=== PATIENT | male | born 1955 | race Caucasian/White ===

== ENCOUNTER → 2019-12-14 10:57 | Outpatient (CLI) | payer MEDICARE, BC ==
[~2019-12-14] VITALS: Ht 170.2 cm; Wt 82.7 kg
--- NOTE | ~2019-12-14 | HEMODYNAMI ---
PATIENT:KANE PAVON MEDICAL RECORD: [id number] : 53 LOCATION:DOFE ADMISSION DATE: 12/14/19 Generatedon:12/14/201914:06 Patient name: KANE PAVON Patient #: [id number] SSN: [id number] : 1955 Date of study: 12/14/2019 Page: Of Hemodynamic Procedure Report Patient Data Patient Demographics Procedure consent was obtained First Name: KANE Gender: Male Last Name: SAVANAH : 1955 Patient #: [id number] Age: 64 year(s) Race: SSN: [id number] Additional ID: [id number] Contact details [address]: [address] [place] [address] State: [place] City: [place] Zip code: [address] Past Medical History Allergies Allergen Reaction Date Comments Reported Other allergy 05/03/2019 NITROGYLCERIN Other allergy 12/14/2019 NITROGLYCERIN Admission Admission Data Admission Date: 12/14/2019 Admission Time: 10:57 Arrival Date: 12/14/2019 Arrival Time: 0:00 Height (in.): 66.93 BSA: 1.95 (m2) Height (cm.): 170 BMI: 28.72 (kg/m2) Weight (lbs.): 182.98 Weight (kg.): 83 Lab Results Lab Result Date: 12/14/2019 Lab Result Time: 0:00 Biochemistry Name Units Result Min Max BUN mg/dl 16 --(---*)-- 7 18 Creatinine mg/dl 1.7 --(----)-* 0.6 1.3 eGFR ml/min 43 *-(----)-- 90 120 NONAFRICAN CBC Name Units Result Min Max Hematocrit % 48 --(-*--)-- 42 54 Hemoglobin g/dl 16.5 --(--*-)-- 13.5 17.5 Procedure Procedure Types Cath Procedure Diagnostic Procedure LHC LHC w/Coronaries w/Grafts Sedation Charges Moderate Sedation up to 15 minutes PCI Procedure Coronary Stent Coronary Stent Initial Hemochron ACT Test Procedure Description Procedure Date Procedure Date: 12/14/2019 Procedure Start Time: 13:43 Procedure End Time: 14:02 Procedure Staff Name Function Mitchel Galeana MD Performing Physician Ant Barry RT Monitor Judy Sandoval RT Scrub Loi Henriquez RN Nurse Indication Cardiomyopathy Procedure Data Cath Procedure Fluoroscopy Diagnostic fluoroscopy Total fluoroscopy Time: 4.5 time: 4.5 min min Diagnostic fluoroscopy Total fluoroscopy dose: 617 dose: 617 mGy mGy Contrast Material Contrast Material Type Amount (ml) Isovue 300 98 Entry Location Entry Primary Successful Side Size Upsize Upsize Entry Closure Succes sful Closure Location (Fr) 1 (Fr) 2 (Fr) Remarks Device Remarks Femoral Right 5 Fr 6 Fr Exoseal artery Short Estimated blood loss: 10 ml Diagnostic catheters Device Type Used For End Catheter Placement MULTIPACK JL 4.0 5Fr Procedure catheter MULTIPACK 3DRC 5Fr Procedure catheter MULTIPACK Pigtail 5 Fr Procedure catheter Procedure Complications No complications Procedure Medications Medication Administration Route Dosage Oxygen etCO2 Nasal cannula 2 l/min Heparin Flush Bag added to field 2 bags (1000units/500ml NS) 0.9% NaCl I.V. 100 ml/hr Lidocaine 2% added to field 20 Fentanyl I.V. 50 mcg Fentanyl I.V. 50 mcg Fentanyl I.V. 50 mcg Heparin Bolus I.V. 4000 units Integrilin (Bolus I.V. 7.3 ml 2mg/ml) Integrilin (Bolus wasted 2.7 ml 2mg/ml) Hemodynamics Rest BSA: 1.95 (m2) HGB: 16.5 (g/dl) O2 Consumption: Estimated: 220.03 (ml/min) O2 Co nsumption indexed: Estimated:112.84 (ml/min/m) Heart Rate: 60 (bpm) Pressure Samples Time Site Value (mmHg) Purpose Heart Use Rate(bpm) 13:50 LV 129/17,17 Snapshot 77 Gradients Valve Time Site Site Mean SEP/DFP Peak To Heart Use 1 2 (mmHg) (sec/min) Peak Rate (mmHg) (bpm) Aortic 13:51 LV AO 65 Snapshots Pre Cath Intra NCS Post Cath Vital Signs Time Heart Resp SPO2 etCO2 NIBP (mmHg) Rhythm Pain Sedation Rate (ipm) (%) (mmHg) Status Level (bpm) 13:32:09 60 16 98 0 177/79(148) NSR 0 (11) 10(A) , No pain 13:36:33 64 16 100 24.8 177/100(152) NSR 0 (11) 10(A) , No pain 13:40:53 60 16 99 33 161/89(138) NSR 0 (11) 10(A) , No pain 13:45:11 62 17 97 0 142/93(121) NSR 0 (11) 10(A) , No pain 13:49:25 65 17 97 0 148/88(131) NSR 0 (11) 9(A) , No pain 13:53:41 62 16 98 0 155/89(140) NSR 0 (11) 9(A) , No pain 13:58:03 63 16 97 0 152/85(128) NSR 0 (11) 9(A) , No pain 14:02:17 60 16 97 0.7 150/87(134) NSR 0 (11) 9(A) , No pain 14:05:32 60 10 97 33 153/82(103) NSR 0 (11) 9(A) , No pain Medications Time Medication Route Dose Verified Delivered Reason Notes Effectiveness by by 13:32:46 Oxygen etCO2 2 Mitchel Cortney Per physician Nasal l/min St Balwinder Kwon cannula MD MCDANIEL 13:32:54 Heparin Flush added 2 Mitchel Cortney used for Bag to bags LissettBalwinder Kwon procedure (1000units/500ml field DOE RN NS) 13:33:01 0.9% NaCl I.V. 100 Mitchel Cortney Per physician ml/hr St Balwinder Kwon MD RN 13:33:12 Lidocaine 2% added 20ml Mitchel Cortney used for to vial Lissett Doyle procedure field MD MCDANIEL 13:37:20 Fentanyl I.V. 50 Mitchel Cortney for sedation mcg [facility] Balwinder Kwon MD, RN 13:40:24 Fentanyl I.V. 50 Mitchel Cortney for sedation mcg [facility] Balwinder Kwon MD, RN 13:42:43 Fentanyl I.V. 50 Mitchel Cortney for sedation mcg [facility] Balwinder Kwon MD RN 13:54:10 Heparin Bolus I.V. 4000 Mitchel Cortney for units St Balwinder berrios MD, RN 13:54:24 Integrilin I.V. 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 13:04:20 Patient allergic to Other allergyNITROGLYCERIN 13:16:17 Lab Result : Hematocrit 48 % 13:16:17 Lab Result : eGFR NONAFRICAN 43 ml/min 13:16:17 Lab Result : Hemoglobin 16.5 g/dl 13:16:17 Lab Result : BUN 16 mg/dl 13:16:17 Lab Result : Creatinine 1.7 mg/dl 13:18:32 Lab results completed and on chart. 13:18:42 Stress Test: no; N/A ? 13:18:48 Risk of Mortality: 0.1 13:18:52 Risk of blood transfusion: 0.4 13:18:56 Risk of BRUNILDA: 3.6 13:19:06 Judy SESAY(R) (CV) sent for patient. Start room use. 13:19:08 Time tracking: Regular hours (M-F 7:00 - 5:00) 13:19:16 Plan of Care:Hemodynamics will remain stable., Cardiac rhythm will remain stable., Comfort level will be maintained., Respiratory function will remain adequate., Patient/ family verbilizes understanding of procedure., Procedure tolerated without complication., Recovers from procedure without complications.. 13:26:24 Patient received from Pre/Post Procedure Room to CCL 1 Alert and oriented. Tansferred to table in Supine position. 13:26:26 Warm blankets applied, and paz hugger turned on for patient comfort. 13:26:26 Correct patient and procedure confirmed by team. 13:26:27 ECG and BP/O2 sat monitors applied to patient. 13:26:41 H&P Date Dictated: 12/13/2019 Within 30 days and on chart., H&P Addendum completed by physician on day of procedure. (MUST COMPLETE FOR ALL OUTPATIENTS). 13:28:30 Pre-procedure instructions explained to patient. 13:28:30 Pre-op teaching completed and patient verbalized understanding. 13:28:32 Family in waiting room. 13:28:34 Patient NPO since Breakfast. 13:28:36 Is the patient allergic to Iodine/contrast media? No. 13:28:40 Is patient on blood thinner?No 13:28:45 Patient diabetic? No. 13:28:48 Previous problem with sedation/anesthesia? No ? 13:28:50 Snore? No 13:28:57 Sleep apnea? Yes 13:28:57 Deviated septum? No 13:28:58 Opens mouth fully? Yes 13:28:59 Sticks out tongue? Yes 13:29:00 Airway obstruction? No ? 13:29:13 Dentures? No ? 13:30:19 Pre procedure: right dorsailis pedis pulse 2+ Normal; easily identifiable; not easily obliterated 13:30:20 Patient pain scale 0/10 ?. 13:30:27 IV patent on arrival in left forearm with 0.9% NaCl at [facility]. 13:30:33 Right groin area was prepped with chlora-prep and draped in sterile fashion 13:30:34 Alarms reviewed by R. N. 13:30:34 Sharps counted by scrub and verified by R.N. 13:30:36 Use device set Femoral Dx 13:30:37 ACIST Syringe (38396) opened to sterile field. 13:30:37 Bag Decanter (2002S) opened to sterile field. 13:30:38 Medline Cath Pack ([id number]) opened to sterile field. 13:30:39 ACIST Hand Control (24072) opened to sterile field. 13:30:39 ACIST Manifold (09673) opened to sterile field. 13:30:40 DIAGNOSTIC Multipack 5Fr catheter set ([id number]) opened to sterile field. 13:30:40 Tegaderm 4 x 4 (1626W) opened to sterile field. 13:30:42 EMERALD Guide Wire (271-724) opened to sterile field. 13:30:42 SHEATH 5FR Clayhole (YHN777) opened to sterile field. 13:30:48 Vital chart was started 13:30:53 Baseline sample Acquired. 13:30:57 Rhythm: sinus rhythm , paced 13:30:59 Full Disclosure recording started 13:31:49 Baseline sample Acquired. 13:32:46 Oxygen 2 l/min etCO2 Nasal cannula was administered by Cortney Kwon RN; Per physician; Verbal order read back and verified. 13:32:54 Heparin Flush Bag (1000units/500ml NS) 2 bags added to field was administered by Cortney Kwon RN; used for procedure; Verbal order read back and verified. 13:33:01 0.9% NaCl 100 ml/hr I.V. was administered by Cortney Kwon RN; Per physician; Verbal order read back and verified. 13:33:12 Lidocaine 2% 20ml vial added to field was administered by Cortney Kwon RN; used for procedure; Verbal order read back and verified. 13:33:46 Physician arrived 13:33:46 --------ALL STOP TIME OUT------ 13:33:46 Final Timeout: patient, procedure, and site verified with staff and physician. All members of the team are in agreement. 13:33:48 Right groin site verified by team. 13:33:51 Fire Safety Assessment: A--An alcohol-based skin anteseptic being used preoperatively., C--Open oxygen or nitrous oxide is being used., D--An ESU, laser, or fiber-optic light is being used. 13:33:55 Physical assessment completed. ASA score P 2 - A patient with mild systemic disease as per Mitchel Galeana MD. 13:34:12 3b) 30-44 Moderately reduced kidney function. 13:34:32 Maximum allowable contrast dose (3.7 X eGFR X 0.75)119 ml. 13:34:42 Sedation plan: IV Moderate Sedation Medication:Versed, Fentanyl 13:37:20 Fentanyl 50 mcg I.V. was administered by Cortney Kwon RN; for sedation; Verbal order read back and verified. 13:40:24 Fentanyl 50 mcg I.V. was administered by Cortney Kwon RN; for sedation; Verbal order read back and verified. 13:41:51 Zero performed for pressure channel P1 13:42:43 Fentanyl 50 mcg I.V. was administered by Cortney Kwon RN; for sedation; Verbal order read back and verified. 13:42:55 Zero performed for pressure channel P1 13:43:03 Procedure started. 13:43:06 Local anesthetic to right femoral artery with Lidocaine 2% by Mitchel Galeana MD.INITIAL ACCESS ONLY 13:43:41 A 5 Fr sheath was inserted into the Right Femoral artery 13:44:35 A MULTIPACK JL 4.0 5Fr catheter was advanced over the wire and used for Procedure. 13:45:16 LCA angiography performed. 13:46:15 SHEATH 6FR Clayhole (YBW833) opened to sterile field. 13:46:27 INFLATOR Merit BasixCompak (FB4360) opened to sterile field. 13:46:27 WHISPER 300cm guide wire ([id number]) opened to sterile field. 13:46:31 Catheter exchanged over wire. 13:46:36 A MULTIPACK 3DRC 5Fr catheter was advanced over the wire and used for Procedure. 13:47:15 RCA angiography performed. 13:47:37 TOVAR to LAD angiography performed. 13:49:36 Catheter exchanged over wire. 13:49:55 A MULTIPACK Pigtail 5 Fr catheter was advanced over the wire and used for Procedure. 13:50:44 GUIDE 6FR XBLAD 3.5 catheter ([id number]) opened to sterile field. 13:51:06 LV gram done using GARCIA 13:51:08 Injector settings: Ml/sec: 10, Volume: 20, 13:51:10 LV hemodynamics recorded. 13:51:20 EF : 30 % 13:51:25 Catheter removed. 13:51:33 Sheath upsized to a 6 Fr Short. 13:51:44 Pre PCI Site: [place] Ramus has 80% stenosis. 13:51:52 6 Fr XBLAD 3.5 guide catheter was inserted over the wire 13:52:05 WHISPER wire advanced. 13:54:04 Wire advanced across lesion. 13:54:10 Heparin Bolus 4000 units I.V. was administered by Cortney Kwon RN; for anticoagulation; Verbal order read back and verified. 13:54:24 Integrilin (Bolus 2mg/ml) 7.3 ml I.V. was administered by Cortney Kwon RN; for anticoagulation; Verbal order read back and verified. 13:54:33 Integrilin (Bolus 2mg/ml) 2.7 ml wasted was administered by Cortney Kwon RN; for anticoagulation; Verbal order read back and verified. 13:58:10 Place stent Inflation Number: 1 A LILI OTW 2.5 x 08 stent ([id number]) was prepped and advanced across the Ramus 80. The stent was deployed at 16 MARIANNE for 0:30 (min:sec) 0. 13:59:03 Stent catheter was removed intact over wire. 13:59:04 Wire removed. 13:59:05 Guide catheter removed. 13:59:10 Post PCI Site: [place] Ramus has 0% stenosis. 13:59:27 EXOSEAL 6Fr (EX600) opened to sterile field. 13:59:37 Sheath removed intact; hemostasis achieved with Exoseal to the Right Femoral artery. 13:59:38 Procedure ended.(Physican Out) 14:00:24 Fluoroscopy time 04.50 minutes. 14:00:28 Flurop Dose total: 617 14:00:28 Fluoroscopy dose: 617 mGy 14:00:33 Dose Area Product 60411 mGy/cm. 14:00:38 Contrast amount:Isovue 300 98ml. 14:00:41 Maximum allowable dose exceeded? No. 14:00:42 Sharps counted by scrub and verified by R.N. 14:00:43 Insertion/operative site no bleeding no hematoma. 14:00:46 Post-op/insertion site Right Femoral artery dressed using a 4 x 4 and Tegaderm. 14:00:48 Post right femoral artery:stable, soft, clean and dry 14:00:50 Post Procedure Pulses reassessed and unchanged 14:00:52 Post-procedure physical assessment completed. ASA score P 2 - A patient with mild systemic disease as per Mitchel Galeana MD. 14:00:54 Post procedure rhythm: unchanged. 14:00:58 Estimated blood loss: 10 ml 14:01:00 Post procedure instruction explained to patient.Patient verbalizes understanding. 14:01:00 Patient needs reinforcement of post procedure teaching. 14:01:50 Procedure type changed to Cath procedure, Diagnostic procedure, LHC, LHC w/Coronaries w/Grafts, Sedation Charges, Moderate Sedation up to 15 minutes, PCI procedure, Coronary Stent, Coronary Stent Initial, Hemochron ACT Test 14:02:27 Procedure and supply charges have been captured, reviewed, submitted and are correct. 14:02:30 Procedure Complication : No complications 14:02:33 Vital chart was stopped 14:02:37 [facility] Findings: MVD- PCI performed (see procedure note) 14:02:43 Operative report dictated upon procedure completion. 14:02:47 Report given to Pre/Post Procedure Room. 14:02:50 Patient transfered to Pre/Post Procedure Room with Stretcher. 14:02:56 Procedure ended. 14:02:56 Full Disclosure recording stopped 14:03:48 ACT drawn and resulted at 297 seconds. (normal therapeutic range 180-240 seconds). 14:03:58 ACC-PCI Only Patient was given prescriptions, or instructed by Mitchel Galeana MD to start/continue the following medications upon discharge: Aspirin, Plavix 14:03:59 End room use (Document Last) 14:04:23 Vital chart was started 14:04:57 End room use (Document Last) 14:06:07 Vital chart was stopped Intervention Summary Intervention Notes Time ActionType Lesion and Equipment Action# Pressure Duration Attributes Used 13:58:10 Place stent [place] LILI OTW 2.5 1 16 00:30 x 08 stent ([id number]) Device Usage Item Name Manufacture Quantity Catalog Hospital Part Current Minim al Lot# / Number Charge Number Stock Stock Serial# Code ACIST Syringe Acist 1 99741 749212 046467 264633 20 (10781) Medical Systems Inc Bag Decanter Microtek 1 2001S 796990 14082 721737 5 (2001S) Medical Inc. Medline Cath Medline 1 [id number] 215274 84522 154018 5 Pack ([id number]) ACIST Hand Acist 1 07151 675270 711291 624157 5 Control Medical (30800) Systems Inc ACIST Acist 1 55598 647553 242551 555646 5 Manifold Medical (26938) Systems Inc DIAGNOSTIC Cardinal 1 KX1959 255497 59400 658527 30 Multipack 5Fr Health catheter set (BB1029) Tegaderm 4 x 3M 1 1626W 871127 981700 819846 5 4 (1626W) EMERALD Guide Cardinal 1 502-455 293286 543938 686023 5 Wire Health (502-455) SHEATH 5FR Terumo 1 HDE864 769433 914886 049694 5 Clayhole (MDL868) MULTIPACK JL Cardinal 1 294765 5 4.0 5Fr Health catheter SHEATH 6FR Terumo 1 ZTF836 990984 607681 975329 40 [place]hole (ZQA577) INFLATOR Merit 1 UG4031 158696 315851 042005 15 [facility] Medical BasixCompak (SE8287) WHISPER 300cm Harmon 1 [id number] 363096 639054 015514 5 guide wire Vascular ([id number]) MULTIPACK Cardinal 1 074876 5 3DRC 5Fr Health catheter MULTIPACK Cardinal 1 721186 5 Pigtail 5 Fr Health catheter GUIDE 6FR Cardinal 1 [id number] 041918 336801 751390 10 XBLAD 3.5 Health catheter ([id number]) LILI OTW 2.5 Medtronic 1 [id number] 967196 70573 119732 5 [id number] x 08 stent ([id number]) EXOSEAL 6Fr Cardinal 1 EX600 320811 496740 799565 10 (EX600) Health Signature Audit [place] Stage Time Signature Unsigned Intra-Procedure 12/14/2019 Ant Barry 2:06:04 PM RT(R); Loi Henriquez RN; Mitchel Galeana MD [facility] [address] [place] [address]
[~2019-12-14 10:57] MED LIST: AMIODARONE HCL200 MG PO; FUROSEMIDE20 MG PO; ISOSORBIDE MONO20 MG PO; LASIX40 MG PO; OMEPRAZOLE40 MG PO; PLAVIX75 MG PO; TOUJEO SOL300 UNIT/1 SC
[2019-12-14 12:26] VITALS: BP 145/80; Ht 170.2 cm; Wt 82.7 kg
[2019-12-14 12:28] LABS: BASOPHILS 0.9 % (0-2); EOSINOPHILS 3.4 % (0-7); HEMOGLOBIN 16.5 g/dL (13.5-17.5); IMMATURE GRANULOCYTES 0.2 % (0-5); LYMPHOCYTES 37.6 % (15-50); MCH 32.1 pg (26.0-34.0); MCHC 34.4 g/dL (31.0-37.0); MCV 93.4 fL (80.0-100.0); MEAN PLATELET VOLUME 11.8 fL (7.4-10.4); MONOCYTES 7.5 % (2-11); NEUTROPHILS 50.4 % (40-80); PLATELET COUNT 109 10x3/uL (130-400); RBC 5.14 10x6/uL (4.20-6.10); RDW 13.5 % (11.5-14.5); WBC 4.7 10x3/uL (4.8-10.8)
[2019-12-14 12:50] LABS: ANION GAP 15.7 mmol/L (8-16); CALCIUM 8.7 mg/dL (8.5-10.1); CARBON DIOXIDE 22.3 mmol/L (21.0-32.0); CHOL - HDL RATIO 9.5 ratio (2.3-4.9); CREATININE - SERUM 1.7 mg/dL (0.6-1.3); LDL-HDL RATIO 6.4 ratio (1.5-3.5)
--- NOTE | 2019-12-14 14:18 | NUR ---
REC'D TO ROOM 7 VIA STRETCHER FROM [employer]. MONITORS ESTAB. AT BS. SEE ORTHOTIC/PROSTHETIC PRACTITIONER. ALARMS ON AND C/L IN REACH.
--- NOTE | 2019-12-14 14:30 | NUR ---
R GROIN SITE SOFT, C/D/I, NO S/S BLEEDING OR HEMATOMA. B/P 143/75, HR 60. R LEG/FOOT WARM WITH PALP PULSES. AT BS. PT DENIES PAIN OR NEEDS. ALARMS ON AND C/L IN REACH.
--- NOTE | 2019-12-14 15:00 | NUR ---
RIGHT GROIN DRESSING C/D/I. NO S/S OF HEMATOMA NOTED. CALL LIGHT WITHIN REACH. VSS AT THIS TIME.
--- NOTE | 2019-12-14 15:30 | NUR ---
RIGHT GROIN DRESSING C/D/I. NO S/S OF HEMATOMA NOTED. CALL LIGHT WITHIN REACH. VSS AT THIS TIME.
--- NOTE | 2019-12-14 16:00 | NUR ---
RIGHT GROIN DRESSING C/D/I. NO S/S OF HEMATOMA NOTED. CALL LIGHT WITHIN REACH. VSS. CALL LIGHT WITHIN REACH. PT RESTING COMFORTABLY. FAMILY AT BEDSIDE. TOLERATING SIPS OF WATER. DENIES NAUSEA/PAIN AT THIS TIME.
--- NOTE | 2019-12-14 17:00 | NUR ---
RIGHT GROIN DRESSING C/D/I. NO S/S OF HEMATOMA NOTED. CALL LIGHT WITHIN REACH. FAMILY AT BEDSIDE. HEAD OF BED INC TO 30 DEGREES. TOLERATED WELL. SET UP WITH SANDWICH TRAY AND DRINK AT THIS TIME. DENIES NAUSEA.
--- NOTE | 2019-12-14 17:30 | NUR ---
DISCUSSED DISCHARGE INSTRUCTIONS WITH PT AND PT'S . THEY VOICED UNDERSTANDING. PIV D/C'D WITH CATH TIP INTACT. TOLERATED WELL. RIGHT GROIN DRESSING C/D/I. NO S/S OF HEMATOMA NOTED. PT INSTRUCTED TO GET UP AND DRESSED AT THIS TIME. AT BEDSIDE TO ASSIST.
--- NOTE | 2019-12-14 17:37 | NUR ---
PT VOIDED 300cc OF CLEAR YELLOW URINE IN URINAL WITHOUT DIFFICULTY.
--- NOTE | 2019-12-18 10:00 | OP ---
PATIENT NAME: KANE PAVON MEDICAL RECORD: [id number] :53 LOCATION:D.CAT ADMISSION DATE: SURGEON: STEVE SANCHEZ MD DATE OF OPERATION: 12/14/2019 PROCEDURE: Left heart catheterization, selective coronary angiography, right femoral artery approach. CATHETERS: A 5-Nepali sheath, 5/4 left and right Vero, 5/4 pig. The procedure was well tolerated. The patient returned to the linton, sheath removed. ExoSeal device placed. FINDINGS: Left ventriculography in 30-degree GARCIA view shows marked inferior hypokinesis to akinesis, overall function reduced 30-35%. CORONARY ANATOMY: LEFT MAIN: Left main is free of disease. LAD: Fills for a short period of time, then totally occluded, fills via competitive flow. CIRCUMFLEX: There is a high OM/ramus with previously placed stents. The stents themselves do not interlock and with about 80% restenosis, small catawba circumflex. The right coronary artery is totally occluded and fills via the LAD via the TOVAR. TOVAR to LAD: Widely patent throughout its course without evidence of post-anastomotic stenosis. PLAN: Intervention of the ramus/high obtuse marginal. DESCRIPTION OF PROCEDURE: A 5-Nepali sheath was exchanged for a 6-Nepali sheath. A XB LAD guiding catheter provided excellent guide catheter support followed by 300 cm Whisper wire was placed across the 80% stenosis down the distal portion of the vessel, used a short 2.5 x 8 mm Herbert drug-eluting stent up to 16 atmospheres for 45 seconds in between the 2 stents. This showed excellent apposition, good improved flow distally, excellent resolution of 80% stenosis, no significant residual. The patient was previously on Plavix. Heparin was used during the case. Sheath was closed with ExoSeal device. TRANSINT:[id number] Voice Confirmation ID: [id number] DOCUMENT ID: [id number] STEVE SANCHEZ MD at 1000 CC: [id number] DICTATION DATE: 12/14/19 1414 MANAGER LOCATION: 12/14/19 1619 DEP CLI 12/14/19 [place] [address]
== END | disposition home or self-care (01) ==
LOC: D.CATH 10:57
PROVIDERS: ATTEND Internal Medicine Interventional Cardiology
DX: I42.9 Cardiomyopathy, unspecified (principal); E78.5 Hyperlipidemia, unspecified; Z95.810 Presence of automatic (implantable) cardiac defibrillator; I25.110 Atherosclerotic heart disease of native coronary artery with unstable angina pectoris
CPT/HCPCS: 93459; C9600

== ENCOUNTER 2019-12-25 13:26 | Inpatient (IN) | payer MEDICARE, BC ==
[~2019-12-25] VITALS: Ht 152.4 cm; Wt 80.9 kg
--- NOTE | ~2019-12-25 | HEMODYNAMI ---
PATIENT:KANE PAVON MEDICAL RECORD: [id number] : 53 LOCATION:[facility] D.2117 ADMISSION DATE: 12/26/19 Generatedon:12/26/201916:10 Patient name: KANE PAVON Patient #: [id number] SSN: [id number] : 1955 Date of study: 12/26/2019 Page: Of Hemodynamic Procedure Report Patient Data Patient Demographics Procedure consent was obtained First Name: KANE Gender: Male Last Name: SAVANAH : 1955 Patient #: [id number] Age: 64 year(s) Race: SSN: [id number] Additional ID: [id number] Contact details [address]: [address] [place] [address] State: [place] City: [place] Zip code: [address] Past Medical History Allergies Allergen Reaction Date Comments Reported Other allergy 05/03/2019 NITROGYLCERIN Other allergy 12/14/2019 NITROGLYCERIN Other allergy 12/26/2019 nitro Admission Admission Data Admission Date: 12/26/2019 Admission Time: 13:10 Arrival Date: 12/26/2019 Arrival Time: 0:00 Room #: D.2117 Insurance Payor: Medicare [facility] #: [id number] Height (in.): 59.84 BSA: 1.78 (m2) Height (cm.): 152 BMI: 35.49 (kg/m2) Weight (lbs.): 180.78 Weight (kg.): 82 Lab Results Lab Result Date: 12/26/2019 Lab Result Time: 0:00 Biochemistry Name Units Result Min Max BUN mg/dl 20 --(----)*- 7 18 Creatinine mg/dl 1.8 --(----)-* 0.6 1.3 eGFR ml/min 40 *-(----)-- 90 120 NONAFRICAN Troponin l ng/ml 0.244 --(----)-* 0 0.06 CBC Name Units Result Min Max Hematocrit % 44.5 --(*---)-- 42 54 Hemoglobin g/dl 14.9 --(-*--)-- 13.5 17.5 Procedure Procedure Types Cath Procedure Diagnostic Procedure [facility] w/Coronaries w/Grafts Sedation Charges Moderate Sedation up to 15 minutes Procedure Description Procedure Date Procedure Date: 12/26/2019 Procedure Start Time: 15:52 Procedure End Time: 16:02 Procedure Staff Name Function Mitchel Galeana MD Performing Physician Justina Marrero RT Monitor Cortney Kwon RN Nurse Judy Sandoval RT Scrub Procedure Data Cath Procedure Fluoroscopy Diagnostic fluoroscopy Total fluoroscopy Time: 2.3 time: 2.3 min min Diagnostic fluoroscopy Total fluoroscopy dose: 266 dose: 266 mGy mGy Contrast Material Contrast Material Type Amount (ml) Isovue 300 52 Entry Location Entry Primary Successful Side Size Upsize Upsize Entry Closure Succes sful Closure Location (Fr) 1 (Fr) 2 (Fr) Remarks Device Remarks Femoral Right 5 Fr Exoseal artery Estimated blood loss: 10 ml Diagnostic catheters Device Type Used For End Catheter Placement MULTIPACK JL 4.0 5Fr Procedure catheter MULTIPACK 3DRC 5Fr Procedure catheter MULTIPACK Pigtail 5 Fr Ventriculography catheter Procedure Complications No complications Procedure Medications Medication Administration Route Dosage 0.9% NaCl I.V. 100 ml/hr Oxygen etCO2 Nasal cannula 2 l/min Lidocaine 2% added to field 20 Heparin Flush Bag added to field 2 bags (1000units/500ml NS) Versed I.V. 2 mg Fentanyl I.V. 50 mcg Versed I.V. 2 mg Fentanyl I.V. 50 mcg Hemodynamics Rest BSA: 1.78 (m2) HGB: 14.9 (g/dl) O2 Consumption: Estimated: 200.83 (ml/min) O2 Co nsumption indexed: Estimated:112.83 (ml/min/m) Heart Rate: 60 (bpm) Pressure Samples Time Site Value (mmHg) Purpose Heart Use Rate(bpm) 15:58 LV 153/10,16 Snapshot 63 15:59 AO 146/81(109) Pullback 60 15:59 LV 139/18,20 Pullback 60 Gradients Valve Time Site 1 Site 2 Mean SEP/DFP Peak To Heart Use (mmHg) (sec/min) Peak Rate (mmHg) (bpm) Aortic 15:59 LV AO 0 60 139/18,20 146/81(109) Calculations Valve P-P Mean Valve Index Valve Source Name Gradient Area Flow (cm2) Aortic 0 0 Snapshots Pre Cath Intra NCS Post Cath Vital Signs Time Heart Resp SPO2 etCO2 NIBP (mmHg) Rhythm Pain Sedation Rate (ipm) (%) (mmHg) Status Level (bpm) 14:37:54 60 13 98 30.5 149/82(134) Paced 0 (11) 10(A) , No pain 14:42:24 65 10 97 36.5 124/73(101) Paced 0 (11) 10(A) , No pain 14:46:49 60 11 97 0 143/77(115) Paced 0 (11) 10(A) , No pain 14:51:15 60 11 98 37.2 139/76(107) Paced 0 (11) 10(A) , No pain 14:55:43 60 11 98 0 135/77(113) Paced 0 (11) 10(A) , No pain 15:00:10 60 10 98 0 138/68(104) Paced 0 (11) 10(A) , No pain 15:04:36 60 11 97 0 139/74(106) Paced 0 (11) 10(A) , No pain 15:08:54 60 12 97 0 137/78(123) Paced 0 (11) 10(A) , No pain 15:13:20 59 15 98 29.8 142/82(131) Paced 0 (11) 10(A) , No pain 15:17:43 60 9 98 0 132/75(110) Paced 0 (11) 10(A) , No pain 15:22:07 60 10 97 0 141/76(113) Paced 0 (11) 10(A) , No pain 15:26:27 60 9 98 0 136/76(109) Paced 0 (11) 10(A) , No pain 15:30:47 60 10 98 0 136/75(111) Paced 0 (11) 10(A) , No pain 15:35:09 60 10 98 0 141/79(114) Paced 0 (11) 10(A) , No pain 15:39:31 60 10 97 19.3 139/75(106) Paced 0 (11) 10(A) , No pain 15:43:51 60 10 98 0 136/77(108) Paced 0 (11) 10(A) , No pain 15:48:13 60 10 97 0 142/78(106) Paced 0 (11) 10(A) , No pain 15:52:38 63 18 98 28.3 143/87(126) Paced 0 (11) 10(A) , No pain 15:57:04 60 15 97 34.2 156/83(126) Paced 0 (11) 10(A) , No pain 16:01:34 60 12 96 33.5 165/88(138) Paced 0 (11) 10(A) , No pain Medications Time Medication Route Dose Verified Delivered Reason Notes Eff ectiveness by by 14:36:34 0.9% NaCl I.V. 100 Mitchel Cortney used for ml/hr Lissett Doyle procedure MD MCDANIEL 14:36:42 Oxygen etCO2 2 Mitchel Cortney used for Nasal l/min [facility] procedure cannula MD MCDANIEL 14:36:47 Lidocaine 2% added 20ml Mitchel Grullon for local to vial [facility] anesthetic field MD DOE 14:36:50 Heparin Flush added 2 Mitchel Mitchel used for Bag to bags [facility] procedure (1000units/500ml field MD DOE NS) 15:49:29 Versed I.V. 2 mg Mitchel Cortney for LissettBalwinder Kwon sedation MD MCDANIEL 15:49:43 Fentanyl I.V. 50 Mit[address] Hob[address]yla for mcg [address] Balwinder Kwon sedation MD MCDANIEL 15:54:14 Versed I.V. 2 mg Mitchel Hobsonyla for LissettBalwinder Kwon sedation MD MCDANIEL 15:54:32 Fentanyl I.V. 50 Mitchel Hobsonyla for mcg LissettBalwinder Kwon sedation MD MCDANIELphoto optics technician Log Time Note 14:20:06 Cortney Kwon RN sent for patient. Start room use. 14:24:49 Informed consent obtained and on chart 14:26:38 Lab Result : BUN 20 mg/dl 14:26:38 Lab Result : Troponin l 0.244 ng/ml 14:26:38 Lab Result : Creatinine 1.8 mg/dl 14:26:38 Lab Result : Hemoglobin 14.9 g/dl 14:26:38 Lab Result : eGFR NONAFRICAN 40 ml/min 14:26:38 Lab Result : Hematocrit 44.5 % 14:26:44 Arrival Date: 12/26/2019 12:00:00 AM 14:26:48 Patient Height : 59.84 inches 14::54 Patient Weight : 180.78 lbs 14:28:48 Time tracking: Regular hours (M-F 7:00 - 5:00) 14:28:56 Plan of Care:Hemodynamics will remain stable., Cardiac rhythm will remain stable., Comfort level will be maintained., Respiratory function will remain adequate., Patient/ family verbilizes understanding of procedure., Procedure tolerated without complication., Recovers from procedure without complications.. 14:29:02 Procedure Status Urgent Heart Cath (IP). 14:29:28 Patient received from Med II to CCL 1 Alert and oriented. Tansferred to table in Supine position. 14:29:29 Warm blankets applied, and paz hugger turned on for patient comfort. 14:29:30 Correct patient and procedure confirmed by team. 14:29:34 ECG and BP/O2 sat monitors applied to patient. 14:36:26 Vital chart was started 14:36:34 0.9% NaCl 100 ml/hr I.V. was administered by Cortney Kwon RN; used for procedure; Verbal order read back and verified. 14:36:42 Oxygen 2 l/min etCO2 Nasal cannula was administered by Cortney Kwon RN; used for procedure; Verbal order read back and verified. 14:36:47 Lidocaine 2% 20ml vial added to field was administered by Mitchel Galeana MD; for local anesthetic; Verbal order read back and verified. 14:36:50 Heparin Flush Bag (1000units/500ml NS) 2 bags added to field was administered by Mitchel Galeana MD; used for procedure; Verbal order read back and verified. 14:38:22 Baseline sample Acquired. 14:38:29 Full Disclosure recording started 14:38:37 H&P Date Dictated: 12/25/2019 Within 30 days and on chart.. 14:38:39 Pre-procedure instructions explained to patient. 14:38:41 Family in patients room. 14:38:44 Patient NPO since Midnight. 14:38:57 Patient allergic to Other allergynitro 14:39:00 Is the patient allergic to Iodine/contrast media? No. 14:39:03 Was the patient premedicated? Yes 14:39:06 Is patient on blood thinner?Yes 14:39:10 ACC The patient was administered the following blood thiners within the last 24 hours: ACCPlavix 14:39:13 Patient diabetic? Yes. 14:39:15 If diabetic: On Metformin? No 14:39:21 Snore? Yes 14:39:24 Sleep apnea? Yes 14:39:33 Dentures? No ? 14:39:38 Patient pain scale 0/10 ?. 14:39:46 IV patent on arrival in right antecubital with 0.[facility]% [facility] at [facility]. 14:39:50 Lab results completed and on chart. 14:39:54 Right groin area was prepped with chlora-prep and draped in sterile fashion 14:39:55 Alarms reviewed by R. N. 14:39:55 Sharps counted by scrub and verified by R.N. 14:39:58 Physician paged 14:42:00 Use device set Femoral Dx 14:42:01 ACIST Syringe (31837) opened to sterile field. 14:42:02 Bag Decanter (2002S) opened to sterile field. 14:42:02 Medline Cath Pack ([id number]) opened to sterile field. 14:42:03 ACIST Hand Control (31320) opened to sterile field. 14:42:04 ACIST Manifold (77444) opened to sterile field. 14:42:04 DIAGNOSTIC Multipack 5Fr catheter set (MP7735) opened to sterile field. 14:42:05 Tegaderm 4 x 4 (1626W) opened to sterile field. 14:42:08 SHEATH 5FR [place] ([id number]) opened to sterile field. 14:42:09 EMERALD Guide Wire (420-324) opened to sterile field. 14:43:05 Insurance Payor : Medicare 14:56:21 Zero performed for pressure channel P1 15:48:41 Physician arrived 15:48:42 --------ALL STOP TIME OUT------ 15:48:43 Final Timeout: patient, procedure, and site verified with staff and physician. All members of the team are in agreement. 15:48:45 Right groin site verified by team. 15:48:51 Fire Safety Assessment: A--An alcohol-based skin anteseptic being used preoperatively., C--Open oxygen or nitrous oxide is being used., D--An ESU, laser, or fiber-optic light is being used. 15:48:55 Physical assessment completed. ASA score P 2 - A patient with mild systemic disease as per Mitchel Galeana MD. 15:49:12 2) 60-89 Mildly reduced kidney function, and other findings (as for stage 1) point to kidney disease. 15:49:29 Versed 2 mg I.V. was administered by Cortney Kwon RN; for sedation; Verbal order read back and verified. 15:49:43 Fentanyl 50 mcg I.V. was administered by Cortney Kwon RN; for sedation; Verbal order read back and verified. 15:51:14 Maximum allowable contrast dose (3.7 X eGFR X 0.75)111 ml. 15:52:10 Sedation plan: IV Moderate Sedation Medication:Versed, Fentanyl 15:52:18 Procedure started. 15:52:42 Local anesthetic to right femoral artery with Lidocaine 2% by Mitchel Galeana MD.INITIAL ACCESS ONLY 15:52:52 A 5 Fr sheath was inserted into the Right Femoral artery 15:53:46 A MULTIPACK JL 4.0 5Fr catheter was advanced over the wire and used for Procedure. 15:53:48 LCA angiography performed. 15:54:14 Versed 2 mg I.V. was administered by Cortney Kwon RN; for sedation; Verbal order read back and verified. 15:54:31 Catheter removed. 15:54:32 Fentanyl 50 mcg I.V. was administered by Cortney Kwon RN; for sedation; Verbal order read back and verified. 15:54:41 A MULTIPACK 3DRC 5Fr catheter was advanced over the wire and used for Procedure. 15:54:43 RCA angiography performed. 15:57:25 TOVAR to LAD angiography performed. 15:57:30 Catheter removed. 15:57:38 A MULTIPACK Pigtail 5 Fr catheter was advanced over the wire and used for Ventriculography. 15:57:45 LV gram done using GARCIA 15:58:55 EF : 50 % 15:59:36 Catheter removed. 15:59:46 Sheath removed intact; hemostasis achieved with Exoseal to the Right Femoral artery. 15:59:50 EXOSEAL 5Fr (EX500) opened to sterile field. 15:59:53 Procedure ended.(Physican Out) 16:00:16 Fluoroscopy time 02.30 minutes. 16:00:22 Flurop Dose total: 266 16:00:22 Fluoroscopy dose: 266 mGy 16:00:29 Dose Area Product 77246 mGy/cm. 16:00:36 Contrast amount:Isovue 300 52ml. 16:00:38 Maximum allowable dose exceeded? No. 16:00:40 Sharps counted by scrub and verified by R.N. 16:00:41 Insertion/operative site no bleeding no hematoma. 16:00:44 Post-op/insertion site Right Femoral artery dressed using a 4 x 4 and Tegaderm. 16:01:17 Post right femoral artery:stable 16:01:23 Post-procedure physical assessment completed. ASA score P 3 - A patient with severe systemic disease as per Mitchel Galeana MD. 16:01:28 Post procedure rhythm: unchanged. 16:01:31 Estimated blood loss: 10 ml 16:01:33 Post procedure instruction explained to patient.Patient verbalizes understanding. 16:01:43 Procedure type changed to Cath procedure, Diagnostic procedure, LHC, LHC w/Coronaries w/Grafts, Sedation Charges, Moderate Sedation up to 15 minutes 16:01:48 Procedure and supply charges have been captured, reviewed, submitted and are correct. 16:02:11 Procedure Complication : No complications 16:02:13 Vital chart was stopped 16:02:21 [facility] Findings: mild to moderate CAD (<70%) 16:02:32 Report given to Med II. 16:02:36 Patient transfered to Med II with Bed. 16:02:52 Procedure ended. 16:02:52 Full Disclosure recording stopped 16:02:57 End room use (Document Last) Device Usage Item Name Manufacture Quantity Catalog Hospital Part Current Minimal L ot# / Number Charge Number Stock Stock Serial# Code ACIST Acist 1 95900 601056 417409 [id number] 20 Syringe Medical (12592) Systems Inc Bag Microtek 1 2001S 858374 12448 630031 5 Decanter Medical Inc. () Medline Medline 1 [id number] 167688 95698 690959 5 Cath Pack ([id number]) ACIST Hand Acist 1 93121 952786 600151 572164 5 Control Medical (53606) Systems Inc ACIST Acist 1 23565 446564 900717 545485 5 Manifold Medical (15486) Systems Inc DIAGNOSTIC Cardinal 1 [id number] 706934 61743 475452 30 Multip2threads 5Fr catheter set (BR5281) Tegaderm 4 3M 1 1626W 967007 896259 235785 5 x 4 (1626W) SHEATH 5FR Terumo 1 [id number] 564089 470606 972739 5 [place] ([id number]) EMERALD Cardinal 1 502-926 823873 393108 006658 5 Guide Wire Health (919-982) MULTIPACK Cardinal 1 105219 5 JL 4.0 5Fr Health catheter MULTIPACK Cardinal 1 [id number] 5 3DRC 5Fr Health catheter MULTIPACK Cardinal 1 215890 5 Pigtail 5 Health Fr catheter EXOSEAL 5Fr Cardinal 1 EX500 209568 947617 943830 10 (EX500) Health Signature Audit [place] Stage Time Signature Unsigned Intra-Procedure 12/26/2019 Justina Marrero 4:09:22 PM RT(R) Intra-Procedure 12/26/2019 Cortney Kwon 4:09:42 PM RN Intra-Procedure 12/26/2019 Mitchel Pretty 4:10:08 PM Balwinder DOE [place] [id number] [facility] [place] [address]
[2019-12-25 13:52] VITALS: BP 145/88
[2019-12-25 14:14] LABS: EOSINOPHILS 3.8 % (0-7); HEMATOCRIT 45.3 % (42.0-54.0); HEMOGLOBIN 15.4 g/dL (13.5-17.5); IMMATURE GRANULOCYTES 0.5 % (0-5); LYMPHOCYTES 34.2 % (15-50); MEAN PLATELET VOLUME 11.7 fL (7.4-10.4); MONOCYTES 8.4 % (2-11); NEUTROPHILS 52.1 % (40-80); PLATELET COUNT 123 10x3/uL (130-400); RBC 4.82 10x6/uL (4.20-6.10); RDW 13.4 % (11.5-14.5); WBC 5.7 10x3/uL (4.8-10.8)
[2019-12-25 14:20] LABS: CALC OSMOLALITY 283 mosm/kg (275-300); CALCIUM 8.4 mg/dL (8.5-10.1); CARBON DIOXIDE 24.3 mmol/L (21.0-32.0); CHLORIDE - SERUM 105 mmol/L (98-107); CREATININE - SERUM 1.9 mg/dL (0.6-1.3); GLUCOSE 203 mg/dL (74-106); POTASSIUM - SERUM 4.2 mmol/L (3.5-5.1); SODIUM 137 mmol/L (136-145); UREA NITROGEN 23 mg/dL (7-18); eGFR NON AFRICAN AMERICAN 38 mL/min (90-120)
[2019-12-25 14:24] LABS: APTT 27.4 SECONDS (22.8-39.4); INR 1.09 (0.85-1.17); PROTIME 14.1 SECONDS (11.6-15.0)
[2019-12-25 14:42] LABS: ALBUMIN 3.6 g/dL (3.4-5.0); ALKALINE PHOSPHATASE 67 U/L (30-120); ALT (SGPT) 29 U/L (10-68); BILIRUBIN - TOTAL 0.38 mg/dL (0.2-1.3); CKMB 1.2 U/L (0.0-3.6); CREATINE KINASE 96 UL (21-232); MAGNESIUM - SERUM 1.9 mg/dL (1.8-2.4); PROTEIN - SERUM 7.2 g/dL (6.4-8.2)
[2019-12-25 14:53] LABS: TROPONIN-I 0.218 ng/mL (0.000-0.060)
[2019-12-25 16:11] VITALS: BP 155/89
--- NOTE | 2019-12-25 16:13 | NUR ---
C/O INTERMITTENT PAIN, POINTS TO CENTER OF CHEST RADIATES TO THE NECK. RATES 7/10 AND DESCRIBES SHARP. ERP INFORMED.
[2019-12-25 17:00] VITALS: BP 145/77
--- NOTE | 2019-12-25 17:35 | NUR ---
SPOKE WITH PT . REPORT OF CONDITION GIVEN. VOICED UNDERSTANDING OF ADMISSION.
[2019-12-25 20:00] VITALS: BP 138/77
[2019-12-25 20:15] VITALS: Ht 152.4 cm; Wt 80.9 kg
--- NOTE | 2019-12-25 20:22 | NUR ---
PATIENT ARRIVED FROM ER. PATIENT IS ALERT AND ORIENTED, RESTING COMFORTABLY IN BED. RESPIRATIONS ARE EVEN AND UNLABORED. NO S/S OF DISTRESS. NO C/O PAIN. WHEN GOING OVER MED REC. PATIENT STATED, "HE DOESN'T REMEMBER WHAT HE TAKES". THAT HIS TAKES CARE OF THAT. CALLED AND LEFT MESSAGE WITH HIS . WHILE CONVERSING WITH THE PATIENT. HE STATED, "THAT HE WAS FROM [place]." I ASKED HIM WHAT BROUGHT HIM TO [place]. PATIENT STATED, "DO YOU WANT THE TRUTH." I SAID, "YES". PATIENT STATED, "TO ."
[2019-12-25] MEDS ORDERED: PACERONE200 MG PO (21:04)
[2019-12-25] MEDS ORDERED: FLOMAX0.4 MG PO (21:09)
[2019-12-25] MEDS ORDERED: TOPAMAX200 MG PO (21:09)
[2019-12-25] MEDS ORDERED: KLOR-CON 1010 MEQ PO (21:10)
[2019-12-25] MEDS ORDERED: REQUIP0.25 MG PO (21:11)
[2019-12-26] VITALS: BP 157/90
[2019-12-26 04:00] VITALS: BP 119/60
[2019-12-26 05:44] LABS: EOSINOPHILS 3.2 % (0-7); HEMATOCRIT 44.5 % (42.0-54.0); HEMOGLOBIN 14.9 g/dL (13.5-17.5); IMMATURE GRANULOCYTES 0.3 % (0-5); LYMPHOCYTES 40.3 % (15-50); MCH 31.4 pg (26.0-34.0); MCHC 33.5 g/dL (31.0-37.0); MCV 93.9 fL (80.0-100.0); MEAN PLATELET VOLUME 11.3 fL (7.4-10.4); NEUTROPHILS 46.2 % (40-80); PLATELET COUNT 126 10x3/uL (130-400); RBC 4.74 10x6/uL (4.20-6.10); RDW 13.5 % (11.5-14.5); WBC 6.2 10x3/uL (4.8-10.8)
[2019-12-26 06:20] LABS: APTT 32.4 SECONDS (22.8-39.4); INR 1.09 (0.85-1.17)
[2019-12-26 06:38] LABS: ANION GAP 12.2 mmol/L (8-16); CALCIUM 8.1 mg/dL (8.5-10.1); CARBON DIOXIDE 23.6 mmol/L (21.0-32.0); CREATININE - SERUM 1.8 mg/dL (0.6-1.3); MAGNESIUM - SERUM 2.1 mg/dL (1.8-2.4); PHOSPHOROUS 4.1 mg/dL (2.5-4.9); POTASSIUM - SERUM 3.8 mmol/L (3.5-5.1)
[2019-12-26 06:42] LABS: TROPONIN-I 0.244 ng/mL (0.000-0.060)
[2019-12-26 07:52] VITALS: BP 160/81
--- NOTE | 2019-12-26 09:40 | NUR ---
EKG COMPLED ORDERED.
[2019-12-26 10:19] LABS: ALT (SGPT) 27 U/L (10-68); CHOL - HDL RATIO 11.2 ratio (2.3-4.9); CHOLESTEROL, TOTAL 279 mg/dL (0-200); HDL CHOLESTEROL 25 mg/dL (32-96); TRIGLYCERIDE 482 mg/dL (30-200)
--- NOTE | 2019-12-26 10:21 | NUR ---
CONSENTS SIGNED FOR [facility]. WILL CONT. PLAN OF CARE.
[2019-12-26 11:36] VITALS: BP 140/67
--- NOTE | 2019-12-26 13:24 | NUR ---
URINE SPECIMEN COLLECTED AND TAKEN TO LAB. WILL MONITOR.
--- NOTE | 2019-12-26 14:26 | NUR ---
LEAVING FOR CO FOUNDER AND CHIEF STRATEGY OFFICER BY BED. WILL MONITOR.
[2019-12-26 14:45] LABS: BILIRUBIN NEGATIVE (NEGATIVE); GLUCOSE 1000 mg/dL (NEGATIVE); KETONE NEGATIVE (NEGATIVE); NITRITE NEGATIVE (NEGATIVE); SPECIFIC GRAVITY 1.015 (1.005-1.020)
--- NOTE | 2019-12-26 16:30 | NUR ---
BACK FROM SALES PRODUCT SPECIALIST. VS WNL. RIGHT GROIN STABLE WITHOUT BLEEDING OR HEMATOMA NOTED. WILL MONITOR.
--- NOTE | 2019-12-26 18:22 | NUR ---
BED REST UP. GROIN STABLE.
--- NOTE | 2019-12-26 19:47 | NUR ---
RECEIVED BEDSIDE REPORT. PATIENT IS ALERT AND ORIENTED, RESTING COFORTABLY IN BED. RESPIRATIONS ARE EVEN AND UNLABORED. NO S/S OF DISTRESS. NO C/O PAIN. RIGHT GROIN SOFT, NO S/S OF BLEEDING, BRUISING, HEMATOMA. CALL LIGHT WITHIN REACH. WILL CPOC.
[2019-12-26 21:02] LABS: CKMB 12.4 U/L (0.0-3.6); CREATINE KINASE 67 UL (21-232)
[2019-12-26 21:31] VITALS: BP 163/75
[2019-12-27 00:30] VITALS: BP 130/68
[2019-12-27 03:15] LABS: CKMB 0.8 U/L (0.0-3.6); CREATINE KINASE 60 UL (21-232)
[2019-12-27 04:39] VITALS: BP 127/70
[2019-12-27 05:55] LABS: BASOPHILS 1.3 % (0-2); EOSINOPHILS 3.3 % (0-7); HEMATOCRIT 42.2 % (42.0-54.0); HEMOGLOBIN 14.2 g/dL (13.5-17.5); IMMATURE GRANULOCYTES 0.4 % (0-5); LYMPHOCYTES 40.1 % (15-50); MCH 31.7 pg (26.0-34.0); MCHC 33.6 g/dL (31.0-37.0); MCV 94.2 fL (80.0-100.0); MEAN PLATELET VOLUME 11.1 fL (7.4-10.4); MONOCYTES 10.5 % (2-11); NEUTROPHILS 44.4 % (40-80); PLATELET COUNT 119 10x3/uL (130-400); RBC 4.48 10x6/uL (4.20-6.10); RDW 13.4 % (11.5-14.5); WBC 5.5 10x3/uL (4.8-10.8)
[2019-12-27 06:10] LABS: ANION GAP 11.3 mmol/L (8-16); CALCIUM 8.1 mg/dL (8.5-10.1); CARBON DIOXIDE 23.3 mmol/L (21.0-32.0); CREATININE - SERUM 1.6 mg/dL (0.6-1.3); PHOSPHOROUS 3.3 mg/dL (2.5-4.9); POTASSIUM - SERUM 3.6 mmol/L (3.5-5.1)
[2019-12-27 07:38] VITALS: BP 147/69
[2019-12-27 11:18] VITALS: BP 131/71
[2019-12-27] MEDS ORDERED: PROTONIX40 MG PO (14:23)
--- NOTE | 2019-12-27 15:15 | NUR ---
IV AND TELEMETRY DCD. DC PLANS GIVEN. UNDERSTANDING VOICED. ESCORTED TO CAR BY W/C.
--- NOTE | 2019-12-28 08:04 | OP ---
PATIENT NAME: KANE PAVON MEDICAL RECORD: [id number] :53 LOCATION:D.M2 D.2116 ADMISSION DATE:12/26/19 SURGEON: STEVE SANCHEZ MD DATE OF OPERATION: 12/26/2019 PROCEDURE: Left heart catheterization, selective coronary angiography, plus TOVAR right femoral artery approach. CATHETERS: A 5-Divehi sheath, 5/4 left and right Vero, 5/4 pig. The procedure was well tolerated. The patient returned to the [place]. Sheath removed. ExoSeal device placed. FINDINGS: Left ventriculography in 30-degree GARCIA view shows inferior hypokinesis along the inferior base that extend the inferior wall with LV function. It appears to be normal at 50% or better. CORONARY ANATOMY: LEFT MAIN: Left main is free of disease. LAD: Totally occluded to be seen filling competitive flow via the TOVAR to LAD. CIRCUMFLEX: Previously placed stent is widely patent. RIGHT CORONARY ARTERY: Totally occluded, fills via collaterals. TOVAR to LAD widely patent throughout its course without evidence of post-anastomotic stenosis. IMPRESSION: No evidence of acute stent thrombosis. LV function remains lower limits of normal. PLAN: Continue medical therapy. TRANSINT:[id number] Voice Confirmation ID: [id number] DOCUMENT ID: [id number] STEVE SANCHEZ MD at 0804 CC: [id number] DICTATION DATE: 12/26/19 1614 GRIDCAP MACHINE OPERATOR: 12/27/19 0110 DIS IN 12/27/19 [facility] [address] [place] [address]
== END 2019-12-27 15:15 | disposition home or self-care (01) | DRG 287 ==
LOC: D.ER 13:26 → D.M2 16:19 → OBSVTIME 16:26 → D.M2 12-26 13:10
PROVIDERS: Family Medicine; Internal Medicine Interventional Cardiology; ADMIT Internal Medicine Nephrology; ATTEND Internal Medicine Nephrology
PROC: B2121ZZ Fluoroscopy of Single Coronary Artery Bypass Graft using Low Osmolar Contrast (ICD-10-PCS; 2019-12-26)
PROC: B2151ZZ Fluoroscopy of Left Heart using Low Osmolar Contrast (ICD-10-PCS; 2019-12-26)
PROC: 4A023N7 Measurement of Cardiac Sampling and Pressure, Left Heart, Percutaneous Approach (ICD-10-PCS; 2019-12-26)
PROC: B2111ZZ Fluoroscopy of Multiple Coronary Arteries using Low Osmolar Contrast (ICD-10-PCS; principal; 2019-12-26 14:20)
DX: I25.110 Atherosclerotic heart disease of native coronary artery with unstable angina pectoris (principal); N17.9 Acute kidney failure, unspecified; I50.20 Unspecified systolic (congestive) heart failure; I13.0 Hypertensive heart and chronic kidney disease with heart failure and stage 1 through stage 4 chronic kidney disease, or unspecified chronic kidney disease; K21.9 Gastro-esophageal reflux disease without esophagitis; I25.5 Ischemic cardiomyopathy; N18.9 Chronic kidney disease, unspecified; Z86.73 Personal history of transient ischemic attack (TIA), and cerebral infarction without residual deficits; R00.1 Bradycardia, unspecified